=== PATIENT | female | born 1975 | race Caucasian/White ===

== ENCOUNTER 2020-12-08 20:32 | Observation (INO) ==
[2020-12-08] MEDS ORDERED: Aspirin 81 MG TAB.CHEW PO ONE (21:28)
[2020-12-08] MEDS ORDERED: Isovue-370 500 ML BOTTLE IVP ONE (21:44)
[2020-12-08 21:57] LABS: Basophils # 0.1 K/mcL (0.0-0.2); Basophils % 0.6 %; Eosinophils # 0.8 K/mcL (0.0-0.6); Eosinophils % 7.6 %; Hematocrit 40.3 % (35.3-44.9); Hemoglobin 13.5 g/dL (11.5-15.4); Immature Granulocytes % 0.6 % (0-4); Lymphocytes # 2.6 K/mcL (0.6-4.6); Lymphocytes % 24.5 %; Mean Corpuscular HGB Conc 33.5 g/dL (31.6-35.5); Mean Corpuscular Hemoglobin 28.8 pg (28.0-33.3); Mean Corpuscular Volume 86.1 fL (83.0-100.0); Mean Platelet Volume 9.5 fL (9.4-12.4); Monocytes # 0.6 K/mcL (0.0-1.3); Neutrophils # 6.4 K/mcL (1.6-8.9); Platelet Count 308 K/mcL (140-400); Red Blood Count 4.68 M/mcL (3.82-4.97); Red Cell Distribution Width 12.5 % (11.5-14.5); Segmented Neutrophils % 60.7 %; White Blood Count 10.6 K/mcL (4.3-11.1)
[2020-12-08 22:07] LABS: D-Dimer 351 ng/mLFEU (0-500)
[2020-12-08] MEDS ORDERED: *HR* Heparin 5,000 UNIT/ML VIAL IVP ONE (22:17)
[2020-12-08] MEDS ORDERED: *HR* Heparin 5,000 UNIT/ML VIAL IVP PRN ×2 (22:17)
[2020-12-08 22:18] LABS: Alanine Aminotransferase 21 Units/L (7-52); Albumin 4.7 g/dL (3.5-5.7); Albumin/Globulin Ratio 1.4 (1.1-2.2); Alkaline Phosphatase 60 Units/L (34-104); Aspartate Amino Transferase 16 Units/L (13-39); BUN/Creatinine Ratio 15 (6-26); Bilirubin,Indirect 0.3 mg/dL (0.0-1.0); Bilirubin,Total 0.3 mg/dL (0.3-1.0); Blood Urea Nitrogen 17 mg/dL (6-20); Calcium 10.2 mg/dL (8.6-10.3); Carbon Dioxide 26 mEq/L (23-29); Chloride 103 mEq/L (98-107); Globulin 3.3 g/dL (2.4-3.5); Glucose 162 mg/dL (70-105); Osmolality,Calculated 293 (280-300); Potassium 3.9 mEq/L (3.5-5.1); Sodium 139 mEq/L (136-145); eGFR For African Americans > 60 (> 60); eGFR For Non-African Americans 52 (> 60)
[2020-12-08 22:19] LABS: Troponin I < 0.03 ng/mL (< 0.04)
[2020-12-08] MEDS ORDERED: Heparin 25,000UNIT/250ML 1/2NS 25,000 UNIT/250 ML IV.SOLN IVC SCH (22:30)
[2020-12-08 22:33] LABS: Thyroid Stimulating Hormone 0.389 mcIU/mL (0.340-5.600)
[2020-12-08 22:40] LABS: INR 0.9; Prothrombin Time 10.3 Seconds (9.4-12.1)
[2020-12-08 22:42] LABS: Heparin anti-factor XA UFH < 0.04 IU/mL (0.30-0.70)
[2020-12-09 05:14] LABS: Influenza A PCR Negative (Negative); Influenza B PCR Negative (Negative); Resp. Syncytial Virus PCR Negative (Negative)
[2020-12-09 05:16] LABS: SARS-CoV-2 by PCR (In House) Negative (Negative)
[2020-12-09] MEDS ORDERED: Naloxone 0.4 MG/ML INJ IVP PRN ×2 (06:25→07:47)
[2020-12-09] MEDS ORDERED: Melatonin 3 MG TABLET PO PRN (06:25)
[2020-12-09] MEDS ORDERED: Acetaminophen 325 MG TABLET PO PRN (06:25)
[2020-12-09] MEDS ORDERED: Ondansetron 4 MG/2 ML VIAL IVP PRN (06:25)
[2020-12-09] MEDS ORDERED: Regadenoson 0.4 MG/5 ML SYRINGE IVP ONE (07:40)
[2020-12-09] MEDS ORDERED: Perflutren Lipid Microsphere 1.3 ML in 0.9 % Sodium Chloride 8.7 ML IVP PRN (08:46)
[2020-12-09] MEDS: Aspirin 81 MG TAB.CHEW PO SCH (10:37)
[2020-12-09 11:43] LABS: INR 1.1; Prothrombin Time 12.1 Seconds (9.4-12.1)
[2020-12-09 11:55] LABS: Chol/HDL Ratio 3.6 (0-4.9)
[2020-12-10 05:02] LABS: Basophils # 0.1 K/mcL (0.0-0.2); Basophils % 0.7 %; Eosinophils # 0.7 K/mcL (0.0-0.6); Eosinophils % 7.3 %; Hematocrit 37.7 % (35.3-44.9); Hemoglobin 12.7 g/dL (11.5-15.4); Immature Granulocytes % 0.4 % (0-4); Lymphocytes # 2.1 K/mcL (0.6-4.6); Lymphocytes % 23.5 %; Mean Corpuscular HGB Conc 33.7 g/dL (31.6-35.5); Mean Corpuscular Hemoglobin 29.3 pg (28.0-33.3); Mean Corpuscular Volume 87.1 fL (83.0-100.0); Mean Platelet Volume 9.6 fL (9.4-12.4); Monocytes # 0.6 K/mcL (0.0-1.3); Monocytes % 6.6 %; Neutrophils # 5.6 K/mcL (1.6-8.9); Platelet Count 276 K/mcL (140-400); Red Blood Count 4.33 M/mcL (3.82-4.97); Red Cell Distribution Width 12.3 % (11.5-14.5); Segmented Neutrophils % 61.5 %; White Blood Count 9.1 K/mcL (4.3-11.1)
[2020-12-10 05:29] LABS: BUN/Creatinine Ratio 15 (6-26); Blood Urea Nitrogen 16 mg/dL (6-20); Calcium 9.2 mg/dL (8.6-10.3); Carbon Dioxide 25 mEq/L (23-29); Chloride 104 mEq/L (98-107); Glucose 138 mg/dL (70-105); Magnesium 1.9 mg/dL (1.6-2.6); Osmolality,Calculated 289 (280-300); Potassium 4.5 mEq/L (3.5-5.1); Sodium 138 mEq/L (136-145); eGFR For African Americans > 60 (> 60); eGFR For Non-African Americans 56 (> 60)
[2020-12-10 07:00] VITALS: O2SAT 96
[2020-12-10] MEDS ORDERED: *HR* Enoxaparin 40 MG/0.4 ML SYRINGE SQ SCH (07:00)
[2020-12-10] MEDS: Aspirin 81 MG TAB.CHEW PO SCH (09:13)
[2020-12-10 11:33] VITALS: BP 147/86; PULSE 80; TEMP 98.8
== END 2020-12-10 14:30 | disposition home or self-care (01) ==
LOC: EMEROOARM 20:32 → 2ANU 20:32 → SUATTDRO 12-09 06:11 → 2ANU 12-09 08:00
PROVIDERS: ADMIT Pharmacist; ATTEND Internal Medicine